=== PATIENT | male | born 1955 | race Caucasian/White ===

== ENCOUNTER 2018-09-01 17:00 | Outpatient (CLI) | payer OTHER | END 2018-09-01 17:01 | disposition home or self-care (01) | LOC: SLEEPLAB 17:00 | PROVIDERS: ATTEND Dentist General Practice | DX: G47.33 Obstructive sleep apnea (adult) (pediatric) (principal) | CPT/HCPCS: 95806 ==

== ENCOUNTER 2021-11-13 19:00 | Outpatient (CLI) | payer MEDICARE, BC | END 2021-11-13 19:01 | disposition home or self-care (01) | LOC: SLEEPLAB 19:00 | PROVIDERS: ATTEND Otolaryngology Plastic Surgery within the Head & Neck | DX: G47.33 Obstructive sleep apnea (adult) (pediatric) (principal); R53.82 Chronic fatigue, unspecified; R41.840 Attention and concentration deficit; F39 Unspecified mood [affective] disorder; R06.83 Snoring; Z91.89 Other specified personal risk factors, not elsewhere classified | CPT/HCPCS: 95810 ==

== ENCOUNTER 2021-12-25 19:30 | Outpatient (CLI) | payer MEDICARE, BC | END 2021-12-25 19:31 | disposition home or self-care (01) | LOC: SLEEPLAB 19:30 | PROVIDERS: ATTEND Otolaryngology Plastic Surgery within the Head & Neck | DX: G47.33 Obstructive sleep apnea (adult) (pediatric) (principal); R06.83 Snoring; G47.10 Hypersomnia, unspecified; E66.9 Obesity, unspecified; F41.9 Anxiety disorder, unspecified; I49.3 Ventricular premature depolarization | CPT/HCPCS: 95811 ==